=== PATIENT | male | born 1980 | race Caucasian/White ===

== ENCOUNTER 2021-05-12 10:51 | Emergency (ER) | payer MEDICAID ==
[2021-05-12] MEDS ORDERED: Sodium Chloride 0.9% 10 ML Syringe FLUSH PRN (10:53)
[2021-05-12] MEDS ORDERED: HYDROmorphone 2 MG/ML SDV IVPUSH STA ×2 (10:53→11:56)
== END 2021-05-12 12:30 | disposition home or self-care (01) ==
LOC: FB.ED 10:51
DX: S39.012A Strain of muscle, fascia and tendon of lower back, initial encounter (principal); S30.0XXA Contusion of lower back and pelvis, initial encounter; Z72.0 Tobacco use; W18.09XA Striking against other object with subsequent fall, initial encounter
CPT/HCPCS: 36415; 72100; 73502-LT; 73560-LT; 80053; 80307; 82550; 85025; 85610; 85730; 96374; 96376; 99283-25; 99284; J1170

== ENCOUNTER 2024-12-12 12:42 | Emergency (ER) | payer MEDICAID | END 2024-12-12 13:35 | disposition home or self-care (01) | LOC: FB.ED 12:42 | DX: S61.212A Laceration without foreign body of right middle finger without damage to nail, initial encounter (principal); F17.200 Nicotine dependence, unspecified, uncomplicated; W26.8XXA Contact with other sharp object(s), not elsewhere classified, initial encounter | CPT/HCPCS: 12002; 99282; J2003 ==